=== PATIENT | male | born 1970 | race African-American/Black ===

== ENCOUNTER 2022-01-02 08:43 | Emergency (ER) | payer MEDICAID ==
[~2022-01-02] VITALS: Ht 170.2 cm; Wt 77.0 kg
[2022-01-02] MEDS ORDERED: HYDR453.3 TP (10:39)
[2022-01-02] MEDS ORDERED: IBUP-2029 MT (10:39)
[2022-01-02] MEDS ORDERED: LIDOCAINE HCL 2% JELLY 5ML TOP ONE (10:45)
[2022-01-02 11:13] VITALS: BP 125/75
== END 2022-01-02 11:14 | disposition home or self-care (01) ==
LOC: ER 08:43
DX: K64.9 Unspecified hemorrhoids (principal); Z90.49 Acquired absence of other specified parts of digestive tract
CPT/HCPCS: 99282

== ENCOUNTER 2023-08-03 11:16 | Emergency (ER) | payer MEDICAID ==
[~2023-08-03] VITALS: Ht 170.2 cm; Wt 76.7 kg
[~2023-08-03 11:16] MED LIST: HYDR453.3 TP; IBUP-2029 MT
[2023-08-03 12:19] VITALS: BP 150/84; PULSE 85; RESP 16; TEMP 98.2; O2SAT 98
== END 2023-08-03 15:34 | disposition home or self-care (01) ==
LOC: ER 11:38
DX: J06.9 Acute upper respiratory infection, unspecified (principal); Z20.822 Contact with and (suspected) exposure to COVID-19; Z98.890 Other specified postprocedural states
CPT/HCPCS: 99281